=== PATIENT | female | born 1995 | race Caucasian/White ===

== ENCOUNTER → 2020-02-25 11:16 | Outpatient (CLI) | payer MEDICAID, SELFPAY ==
[2020-03-01 16:40] LABS: HPV Reflexed? NOT INDICATED
== END ==
PROVIDERS: Visit Provider Student in an Organized Health Care Education/Training Program
DX: Z12.4 Encounter for screening for malignant neoplasm of cervix (principal)
CPT/HCPCS: 88175; G0145

== ENCOUNTER → 2021-04-11 12:25 | Outpatient (CLI) | payer MEDICAID, SELFPAY ==
[2021-04-12 22:07] LABS: Chlamydia By Nucleic Acid AMP Negative (Negative)
[2021-04-13 16:57] LABS: Gonococcus By Nucleic Acid AMP Negative (Negative)
[2021-04-13 16:58] LABS: Gonococcus By Nucleic Acid AMP Negative (Negative)
== END ==
PROVIDERS: Visit Provider Student in an Organized Health Care Education/Training Program
DX: Z11.3 Encounter for screening for infections with a predominantly sexual mode of transmission (principal); Z32.01 Encounter for pregnancy test, result positive
CPT/HCPCS: 87491; 87591

== ENCOUNTER → 2021-04-17 11:43 | Outpatient (CLI) | payer MEDICAID, SELFPAY ==
[2021-04-17 12:09] LABS: Absolute Neutrophil Count 7.2 X10^3/uL (2.0-7.7); Basophil# 0.04 X10^3/uL; Basophil% 0.4 % (0-1); Eosinophil# 0.07 X10^3/uL; Eosinophils% 0.7 % (0-5); Hematocrit 46.7 % (37-47); Hemoglobin 15.6 g/dL (12.0-15.0); Lymphocyte % 19.6 % (19-41); Mean Corp Hgb Conc 33.4 g/dL (32-36); Mean Corpuscular Hgb 30.1 pg (27.0-32.0); Monocyte# 0.41 X10^3/uL; Monocyte% 4.2 % (0-10); NRBC Flagged by Analyzer 0 % (0-5); Neutrophil # 7.21 X10^3/uL (2.7-7.7); Neutrophil % 74.7 % (47-70); POSITIVE COUNT YES; RBC Distribution Width CV 13.1 % (11.6-14.6); RBC Distribution Width SD 42.3 fl (35.1-43.9); Red Blood Count 5.19 M/mm3 (4.2-5.4); White Blood Count 9.7 K/mm3 (4.4-11.0)
[2021-04-17 12:10] LABS: Differential Indicated SCAN CRITERIA MET
[2021-04-17 12:38] LABS: Platelet Estimate ADEQUATE (ADEQ)
[2021-04-17 14:13] LABS: HIV - WCH Non-Reactive (Nonreactive); Hepatitis B Surface Antigen Non-Reactive (Nonreactive); Hepatitis C Antibody Non-Reactive (Nonreactive); Syphilis Antibodies Non-reactive
== END ==
PROVIDERS: Visit Provider Student in an Organized Health Care Education/Training Program
DX: Z34.81 Encounter for supervision of other normal pregnancy, first trimester (principal)
CPT/HCPCS: 36415; 85025; 86703; 86762; 86780; 86803; 87086; 87088; 87340

== ENCOUNTER → 2021-05-15 13:08 | Outpatient (CLI) | payer MEDICAID, SELFPAY ==
[2021-05-15 13:33] LABS: Hematocrit 43.8 % (37-47); Hemoglobin 14.7 g/dL (12.0-15.0); Mean Corp Hgb Conc 33.6 g/dL (32-36); Mean Corpuscular Hgb 30.4 pg (27.0-32.0); Mean Corpuscular Volume 90.7 fL (81-99); Mean Platelet Vol. 11.7 fl (6.2-12.0); Platelet Count 164 K/mm3 (150-450); RBC Distribution Width CV 12.9 % (11.6-14.6); RBC Distribution Width SD 42.5 fl (35.1-43.9); Red Blood Count 4.83 M/mm3 (4.2-5.4); White Blood Count 8.9 K/mm3 (4.4-11.0)
[2021-05-15 14:02] LABS: Glucose Challenge Gest 1H 50g 118 mg/dL (70-140)
== END ==
PROVIDERS: Visit Provider Student in an Organized Health Care Education/Training Program
DX: Z34.82 Encounter for supervision of other normal pregnancy, second trimester (principal)
CPT/HCPCS: 36415; 82950; 85027

== ENCOUNTER 2021-09-04 11:07 | Outpatient (CLI) | payer MEDICAID, SELFPAY ==
[2021-09-04 11:23] LABS: Hematocrit 39.3 % (37-47); Hemoglobin 13.5 g/dL (12.0-15.0); Mean Corp Hgb Conc 34.4 g/dL (32-36); Mean Corpuscular Hgb 32.6 pg (27.0-32.0); Mean Corpuscular Volume 94.9 fL (81-99); Platelet Count 274 K/mm3 (150-450); RBC Distribution Width CV 13.7 % (11.6-14.6); RBC Distribution Width SD 47.3 fl (35.1-43.9); Red Blood Count 4.14 M/mm3 (4.2-5.4); White Blood Count 11.4 K/mm3 (4.4-11.0)
[2021-09-04 11:59] LABS: Glucose Challenge Gest 1H 50g 68 mg/dL (70-140)
== END 2021-09-04 23:59 | disposition home or self-care (01) ==
LOC: WOBLAB 11:08
PROVIDERS: Visit Provider Obstetrics & Gynecology
DX: Z34.83 Encounter for supervision of other normal pregnancy, third trimester (principal)
CPT/HCPCS: 36415; 82950; 85027

== ENCOUNTER → 2021-11-14 | Outpatient (CLI) | payer MEDICAID, SELFPAY | END | disposition home or self-care (01) | LOC: LABSPEC 13:16 | PROVIDERS: Visit Provider Student in an Organized Health Care Education/Training Program | DX: Z36.85 Encounter for antenatal screening for Streptococcus B (principal) | CPT/HCPCS: 87081 ==

== ENCOUNTER 2021-11-28 22:43 | Inpatient (IN) | payer MEDICAID, SELFPAY ==
[2021-11-28] VITALS (10 sets, daily range): BP systolic 129–141; BP diastolic 71–83; PULSE 85–101; TEMP 36.8–37.2; O2SAT 82–100; BMI 47.7
--- NOTE | 2021-11-28 | PLAC_PTH ---
PATIENT: NICOLAS BERG LOC: [facility] U#:[id number] AGE/SX: 26/F ROOM: WP010 RE11/28/[address]: Dr. Danni Gates MD : 1995 BED: 1 DIS: 11/30/2021 SPEC #: [id number] RECD: 11/29/21 00:42 STATUS: CONY LANCE #: [id number] PATIENCE: 11/28/21 00:[address]: Danni Flynn DEPT: SURGICAL PATHOLOGY RECD BY: Juanita Smith Tissues: Placenta, NOS Procedures: Surgery Specimen Level V HEADER OPERATION: Vaginal delivery PRE-OP DIAGNOSIS: IUGR, 38 3/7wga, spontaneous labor TISSUE SUBMITTED: Placenta MICROSCOPIC DIAGNOSIS Placenta: Placental disc - third trimester placenta (449 gm). - Focal chronic villitis of unknown etiology. Membranes ? focal mild acute chorioamnionitis. Umbilical cord - three blood vessels and no pathologic diagnosis. SJ:diamond 11/30/2021 MICROSCOPIC DESCRIPTION Slides are reviewed. GROSS DESCRIPTION SPECIMEN: PLACENTA / CLINICAL INFORMATION: A. Weight: 2.37 kg B. Gestational Age: 38 weeks C. Sex: Female PLACENTAL WEIGHT (POST FIXATION): 449 gm PLACENTAL DIMENSIONS: 17 x 15 x 3.5 cm PLACENTAL SHAPE: Usual ovoid PLACENTAL WEIGHT FOR GESTATIONAL AGE: Within 10-99th percentile MEMBRANES - Present A. Insertion: Marginal B. Site of rupture from edge: 2 cm from edge of placental disc C. Color of membrane: Kaiser-mucoidy D. Abnormalities: None UMBILICAL CORD - Present A. Color: Kaiser-valladares B. Insertion: Paracentral C. Length: 54 cm D. Diameter: 0.8 to 1 cm E. Number of vessels: Three F. Abnormalities: Increased spiraling is noted. PLACENTAL DISC - Present A. Color of surface: Kaiser-valladares B. surface abnormalities: None C. Maternal cotyledons: Intact with minimal tears D. Attached retro placental clot: No clot E. Cut surface: Dark red and spongy F. Lesions: None G. Separate clot: Absent SECTIONS SUBMITTED: 1. Membrane roll 2. Cord, maternal end 3. Cord, end 4. Placental disc, and maternal surfaces 5. Placental disc, and maternal surfaces 6. Placental disc, and maternal surfaces SJ:diamond 11/29/2021 TC:2 CPT: 38682
--- NOTE | 2021-11-28 18:01 | OB.TRI.NOTE ---
HPI - General General Date of Admission: 11/28/21 Date of Service: 11/28/21 Chief Complaint: decreased movement HPI Narrative NICOLAS BERG, is a 26 F who presents at 38 2/7 weeks gestation with decreased movement. Reports intermittent contractions. No leaking of fluid of vaginal bleeding. PFSH PFS Medical History (Updated 11/29/21 @ 00:[address] Danni Gates MD) Obesity Uterine anomaly Uterus didelphys Vaginal septum Home Medications [id number] 1 mg tablet tab PO 11/28/21 [History Last Taken 11/27/21 15:00] Allergy/AdvReac Type Severity Reaction Status Date / Time NSAIDS (Non-Steroidal AdvReac Swelling Verified 11/28/21 11:30 Anti-Inflamma sulfamethoxazole AdvReac Swelling Verified 11/28/21 11:30 [From Bactrim] trimethoprim [From Bactrim] AdvReac Swelling Verified 11/28/21 11:30 Family History (Updated 11/28/21 @ 23:[address] Danni Gates MD) Brother Leukemia Other Diabetes Surgical History (Updated 11/28/21 @ 23:[address] Danni Gates MD) History of tonsillectomy Surgical History no surgical history Social History (Updated 11/28/21 @ 23:[address] Danni Gates MD) Smoking Status: Never smoker alcohol intake: never History 1 Elective abortions Hx Para 0 Spontaneous abortions Hx # Term Pregnancies Ectopic pregnancies Hx # Pregnancies Multiple births # of living children NST FHR Rate Baby A Baseline: 130 Variability:: Moderate Accelerations:: 15 x 15 Decelerations:: None NST Reactive:: Yes FHR Category:: Category I Uterine Activity:: 0/10 Assessment & Plan (1) 38 weeks gestation of : (2) IUGR (intrauterine growth restriction) affecting care of mother: PLAN: NST reactive, Cat I Discussed with patient IUGR diagnosis. Given 38wga and maternal obesity and decreased FM offered induction of labor today. Pt reports movement improved during observation. Recent testing with BPP 8/8 11/27/21 and today's reactive NST overall reassuring and suggest overall low risk for stillbirth. Discussed continued outpatient monitoring as alternative. Following discussion of risks, benefits of IOL vs. expectant management pt opts for d/c home. Will plan for office follow up as scheduled.
--- NOTE | 2021-11-28 22:53 | PCM.HP.OB ---
HPI - General General Date of Admission: 11/28/21 Date of Service: 11/28/21 Chief Complaint: painful contractions HPI Narrative NICOLAS BERG, is a 26 F G1 at 38 2/7 weeks gestation (PRIYANK 12/10/21 by 6w ) with c/o painful contractions. She believes her water just broke since arrival to hospital. issues -Uterine didelphys with vaginal septum -Class III obesity -IUGR - 25th% overall with AC 2% - EFW 2596g on 11/23/21 PFSH PFSH Medical History (Updated 11/28/21 @ 23:[address] Danni Gates MD) Obesity Uterine anomaly Uterus didelphys Vaginal septum Home Medications [id number] 1 mg tablet tab PO 11/28/21 [History Last Taken 11/27/21 15:00] Allergy/AdvReac Type Severity Reaction Status Date / Time NSAIDS (Non-Steroidal AdvReac Swelling Verified 11/28/21 11:30 Anti-Inflamma sulfamethoxazole AdvReac Swelling Verified 11/28/21 11:30 [From Bactrim] trimethoprim [From Bactrim] AdvReac Swelling Verified 11/28/21 11:30 Family History (Updated 11/28/21 @ 23:[address] Danni Gates MD) Brother Leukemia Other Diabetes Surgical History (Updated 11/28/21 @ 23:[address] Danni Gates MD) History of tonsillectomy Surgical History no surgical history Social History (Updated 11/28/21 @ 23:[address] Danni Gates MD) Smoking Status: Never smoker alcohol intake: never History 1 Elective abortions Hx Para 0 Spontaneous abortions Hx # Term Pregnancies Ectopic pregnancies Hx # Pregnancies Multiple births # of living children NST FHR Rate Baby A Baseline: 120 Variability:: Minimal Accelerations:: None Decelerations:: Late FHR Category:: Category II Uterine Activity:: 3-4/10 min Vital Signs Vital Signs Vital Signs: 11/28/21 11:16 11/28/21 11:16 11/28/21 11:16 Temperature Temperature Source Temporal Pulse Rate 98 Blood Pressure 141/83 H BP Systolic 141 BP Diastolic 83 Pulse Ox 11/28/21 11:16 11/28/21 11:16 11/28/21 11:32 Temperature 98.3 F Temperature Source Pulse Rate Blood Pressure 132/77 H BP Systolic 132 BP Diastolic 77 Pulse Ox 98 11/28/21 11:32 11/28/21 22:02 11/28/21 22:02 Temperature Temperature Source Pulse Rate 89 85 Blood Pressure 129/71 H BP Systolic 129 BP Diastolic 71 Pulse Ox 11/28/21 22:02 11/28/21 22:11 11/28/21 22:11 Temperature Temperature Source Pulse Rate 101 H Blood Pressure BP Systolic BP Diastolic Pulse Ox 97 99 Weight Weight: 130 kg Body Mass Index (BMI) 47.7 Physical Exam Const alert, oriented x3 and no apparent distress HEENT normocephalic Resp normal respiratory effort, normal air movement and clear to auscultation bilaterally Cardio regular rate and regular rhythm GI normal to inspection, nondistended, normoactive bowel sounds, soft to palpation, non-tender and non-distended Inspection: gravid Narrative: 4.5/75/-3, soft and midposition Labs Labs Labs: Blood Type O POSITIVE Hct 39.3 % (37-47) Hgb 13.5 g/dL (12.0-15.0) Syphilis Total Ab Non-reactive Hep Bs Antigen Non-Reactive (Nonreactive) Chlamydia DNA (STEVIE) Negative (Negative) Neisseria gonorrhoeae DNA (STEVIE) Negative (Negative) HIV 1&2 Antibody Non-Reactive (Nonreactive) Glucose 1 Hr 50 gm 68 mg/dL (70-140) L Assessment & Plan (1) 38 weeks gestation of : PLAN: Admit in labor GBS neg (2) IUGR (intrauterine growth restriction) affecting care of mother: PLAN: FHT improved to Cat I with fluid bolus Continuous monitoring
[2021-11-28] MEDS: Lactated Ringers 1,000 ML 200 ML IV (23:28)
[2021-11-28 23:36] LABS: Absolute Lymphocyte Count 2.29 X10^3/uL (0.83-4.51); Absolute Neutrophil Count 13.1 X10^3/uL (2.0-7.7); Basophil# 0.04 X10^3/uL; Basophil% 0.2 % (0-1); Eosinophil# 0.07 X10^3/uL; Eosinophils% 0.4 % (0-5); Hematocrit 42.2 % (37-47); Hemoglobin 14.4 g/dL (12.0-15.0); Lymphocyte # 2.29 X10^3/ul (0.83-4.51); Lymphocyte % 13.8 % (19-41); Mean Corp Hgb Conc 34.1 g/dL (32-36); Mean Corpuscular Hgb 32.8 pg (27.0-32.0); Mean Corpuscular Volume 96.1 fL (81-99); Monocyte# 0.84 X10^3/uL; NRBC Flagged by Analyzer 0 % (0-5); Neutrophil # 13.14 X10^3/uL (2.7-7.7); Platelet Count 239 K/mm3 (150-450); RBC Distribution Width CV 13.7 % (11.6-14.6); RBC Distribution Width SD 47.8 fl (35.1-43.9); Red Blood Count 4.39 M/mm3 (4.2-5.4); White Blood Count 16.7 K/mm3 (4.4-11.0)
[2021-11-28 23:49] LABS: ROM Internal Control Test YES-OK TO RESULT pt. (Internal QC)
[2021-11-28 23:51] LABS: ROM Patient Test POSITIVE (Negative)
[2021-11-28] MEDS: Oxytocin 30 units/NS 500 ml 30 UNITS/500 ML IV.SOLN 334 UNITS IV (23:57)
[2021-11-29] VITALS (15 sets, daily range): BP systolic 107–164; BP diastolic 54–81; PULSE 72–94; RESP 16–18; TEMP 35.8–37.1; O2SAT 98
--- NOTE | 2021-11-29 00:16 | EX.PCM.OBRPT ---
Assessment & Plan (1) 38 weeks gestation of : (2) IUGR (intrauterine growth restriction) affecting care of mother: (3) (spontaneous vaginal delivery): Vaginal Delivery Maternal Presentation Maternal Presentation: Active Labor Operative Information Date of Procedure: 11/29/21 Pre-Operative Diagnosis: 1. 38-3/7 weeks gestation 2. IUGR 3. Uterine didelphys - in right horn Post-Operative Diagnosis: 1. 38-3/7 weeks gestation 2. IUGR 3. Uterine didelphys- in right horn Surgery / Procedure Performed: Spontaneous Vaginal Delivery Type of Anesthesia: None Estimated Blood Loss: 150 ml Time of Delivery: 23:47 Findings Description of Procedure: Patient was fully dilated and +2 station. She pushed to deliver a vigorous female in OA through a nuchal cord. The cord was reduced and placed on the maternal abdomen and further attended by nursery personnel. The cord was doubly clamped and cut at 5 minutes of life. Cord gases and cord blood specimen were obtained. The placenta delivered spontaneously and appeared intact on inspection. A first-degree perineal laceration with vaginal extension was repaired with 3-0 Vicryl Rapide. There was excellent hemostasis and the fundus was firm. Sponge counts correct x2. Presentation: Vertex Amniotic Membrane Rupture Type: Spontaneous Amniotic Fluid Description: Clear Placental Delivery Description: Spontaneous Placenta Disposition: [facility] Specimen(s) Removed: Placenta Cord Vessel Description: 3 Vessels Cord Entanglement: Around neck x 1, loose Nuchal Cord Compression: Without compression Cord Gases: ABG and VBG Infant A Gender: Female (1 minute): 8 (5 minute): 9 Delayed Cord Clamping: Yes Post Vaginal Delivery Medications Given After Delivery: IV Pitocin Episiotomy Description: None Laceration: Midline, Perineal Extension/lac, Vaginal Extension/lac and 1st degree Complication Complications: None
[2021-11-29 00:44] LABS: Pathology Specimen OB SEE PATHOLOGY REPORT
[2021-11-29] MEDS: Acetaminophen 500 MG Tablet 1000 MG PO ×3 (01:19→16:46)
[2021-11-29] MEDS: Hydrocortisone 2.5% Crm 1 APPLIC TOPICAL (02:05)
[2021-11-29] MEDS: 0.9% Saline Lock 10 ML Syringe IV (02:30)
--- NOTE | 2021-11-29 04:30 | NURSING ---
report given to Alden VASQUEZ, she assumes pt care at this time
--- NOTE | 2021-11-29 08:41 | PCM.PN.OB ---
Subjective Subjective She is sore this morning, but feels pain is manageable. Denies heavy lochia, headaches and vision changes. Objective Data Objective Data Vital Signs: Vital Signs Temp Pulse Resp BP Pulse Ox 97.8 F 88 18 110/58 L 98 11/29/21 07:49 11/29/21 07:49 11/29/21 07:49 11/29/21 07:49 11/29/21 03:12 Oxygen Delivery Method Room Air Weight: 130 kg Body Mass Index (BMI) 47.7 Intake & Output: Intake and Output for Last 24 Hours 11/27/21 11/28/21 11/29/21 23:59 23:59 23:59 Intake Total 63.33 / 63.33 500 / 500 Output Total 500 / 500 Balance 63.33 / 63.33 0 / 0 Lab / Micro Data Result Diagrams: 11/28/21 22:35 Labs: Laboratory Results - last 24 hr 11/28/21 22:35: WBC 16.7 H, RBC 4.39, Hgb 14.4, Hct 42.2, MCV 96.1, MCH 32.8 H, MCHC 34.1, RDW Std Deviation 47.8 H, RDW Coeff of Leola 13.7, Plt Count 239, MPV 12.0, Immature Gran % (Auto) 1.600 H, Neut % (Auto) 79.0 H, Lymph % (Auto) 13.8 L, [place] % (Auto) 5.0, Eos % (Auto) 0.4, Baso % (Auto) 0.2, Absolute Neuts (auto) 13.1 H, Absolute Lymphs (auto) 2.29, Nucleated RBC % 0 11/28/21 22:35: Blood Type O POSITIVE, Antibody Screen NEGATIVE 11/28/21 22:46: Vag Amniotic Fld Detect POSITIVE H Micro: Microbiology 11/28/21 22:46 Nasal Secretion SARS-CoV-2 Antigen (Rapid) - Final Physical Exam Const alert, oriented x3 and no apparent distress Resp normal respiratory effort and normal air movement Cardio regular rate, regular rhythm, S1 normal heart sound and S2 normal heart sound Uterus Palpation: uterus fundus firm and other OB fundus nontender Extremity no calf tenderness Neuro oriented x3 Assessment & Plan (1) (spontaneous vaginal delivery): PLAN: Plan Rh positive Routine care
[2021-11-30 00:15] VITALS: BP 110/64; PULSE 91; RESP 16; TEMP 37.1; O2SAT 98
[2021-11-30] MEDS: Acetaminophen 500 MG Tablet 1000 MG PO ×2 (02:01→08:37)
[2021-11-30 04:45] VITALS: BP 101/53; PULSE 94; RESP 16; TEMP 36; O2SAT 96
[2021-11-30 08:02] VITALS: BP 102/61; PULSE 84; RESP 17; TEMP 36.6; O2SAT 97
--- NOTE | 2021-11-30 08:52 | DCINST_ITS ---
Discharge Instructions Diet Discharge Diet: No restrictions Activity Discharge Activity: May Drive (In 1 to 2 days if not taking narcotic pain medication), May Shower and May Take a Tub Bath May resume sexual activity in: 4-6 weeks Additional Activity Instructions:: Nothing in the vagina for 4-6 weeks. You may return to work/school in 6 weeks. Dressing / Incision Call your doctor if you observe: Fever of 101 or Higher, Inability to urinate, Inability to have a bowel movement and Using more than 1 pad per hour Follow Up Care Please Follow Up With: Susanna Alva DO When: Call [phone] to make an appointment with your doctor in 6 weeks. Test Results: Test results from this visit will be discussed in further detail at your follow- up appointment, if applicable. Discharge Plan Admission Admit Date/Time: 11/28/21 22:43 Primary Reason for Your Visit: Spontaneous Vaginal Delivery Attending Provider: Dnani Flynn Discharge Orders/Prescriptions Prescriptions: No Action + Iron 1 mg Tablet PO Referrals / Follow Up: Danni Flynn MD [STAFF PHYSICIAN] - (Keep office appointment. Use kick count sheet.) Disposition Disposition (needs filled in before D/C Order can be placed): Home, Self Care
--- NOTE | 2021-11-30 08:52 | PCM.PN.OB ---
Subjective Subjective Patient without complaints. Breast-feeding going well and minimal vaginal bleeding reported. Wants to go home today. Objective Data Objective Data Vital Signs: Vital Signs Temp Pulse Resp BP Pulse Ox O2 Del Method 97.8 F 84 17 102/61 97 Room Air 11/30/21 08:02 11/30/21 08:02 11/30/21 08:02 11/30/21 08:02 11/30/21 08:02 11/30/21 08:02 Oxygen Delivery Method Room Air Weight: 286 lb 9.615 oz Body Mass Index (BMI) 47.7 Intake & Output: Intake and Output for Last 24 Hours 11/28/21 11/29/21 11/30/21 23:59 23:59 23:59 Intake Total 63.33 / 63.33 500 / 500 Output Total 500 / 500 Balance 63.33 / 63.33 0 / 0 Lab / Micro Data Result Diagrams: 11/28/21 22:35 Micro: Microbiology 11/28/21 22:46 Nasal Secretion SARS-CoV-2 Antigen (Rapid) - Final Assessment & Plan (1) (spontaneous vaginal delivery): PLAN: Plan Doing well day #2 status post routine spontaneous vaginal delivery. Will discharge to home with routine instructions.
[2021-11-30 14:00] VITALS: BP 121/62; PULSE 104; RESP 16; TEMP 36.6; O2SAT 97
== END 2021-11-30 14:25 | disposition home or self-care (01) | DRG 560 ==
LOC: WPOUT 22:48 → WP 22:48
PROVIDERS: Admitting Provider Obstetrics & Gynecology; Visit Provider Obstetrics & Gynecology
DX: O36.5930 Maternal care for other known or suspected poor fetal growth, third trimester, not applicable or unspecified (principal); Z37.0 Single live birth; O36.8130 Decreased fetal movements, third trimester, not applicable or unspecified; O69.81X0 Labor and delivery complicated by cord around neck, without compression, not applicable or unspecified; O70.0 First degree perineal laceration during delivery; Z3A.38 38 weeks gestation of pregnancy; Z79.1 Long term (current) use of non-steroidal anti-inflammatories (NSAID); Q51.28 Other and unspecified doubling of uterus; O99.893 Other specified diseases and conditions complicating puerperium
CPT/HCPCS: 59025; 59050; 84112; 85025; 86850; 86900; 86901; 87426; 88307; 99218; J7120; A4216; G0378

== ENCOUNTER → 2022-05-16 | Outpatient (CLI) | payer MEDICAID, SELFPAY ==
[2022-05-26 20:49] LABS: HPV Reflexed? NOT INDICATED
[2022-05-26 20:49] LABS: HPV Reflexed? NOT INDICATED
== END | disposition home or self-care (01) ==
PROVIDERS: Visit Provider Student in an Organized Health Care Education/Training Program
DX: Z01.419 Encounter for gynecological examination (general) (routine) without abnormal findings (principal); N76.0 Acute vaginitis; Q51.10 Doubling of uterus with doubling of cervix and vagina without obstruction
CPT/HCPCS: 88175; G0145

== ENCOUNTER → 2023-01-21 | Outpatient (CLI) | payer MEDICAID, SELFPAY ==
[2023-01-21 13:19] LABS: Absolute Lymphocyte Count 1.82 X10^3/uL (0.83-4.51); Absolute Neutrophil Count 7.3 X10^3/uL (2.0-7.7); Basophil# 0.04 X10^3/uL; Basophil% 0.4 % (0-1); Eosinophil# 0.03 X10^3/uL; Eosinophils% 0.3 % (0-5); Hematocrit 42.9 % (37-47); Hemoglobin 14.2 g/dL (12.0-15.0); Lymphocyte # 1.82 X10^3/ul (0.83-4.51); Lymphocyte % 18.9 % (19-41); Mean Corp Hgb Conc 33.1 g/dL (32-36); Mean Corpuscular Hgb 30.6 pg (27.0-32.0); Mean Corpuscular Volume 92.5 fL (81-99); Mean Platelet Vol. 11.4 fl (6.2-12.0); Monocyte# 0.39 X10^3/uL; Monocyte% 4.1 % (0-10); NRBC Flagged by Analyzer 0 % (0-5); Neutrophil # 7.29 X10^3/uL (2.7-7.7); Neutrophil % 75.9 % (47-70); Platelet Count 316 K/mm3 (150-450); RBC Distribution Width CV 12.8 % (11.6-14.6); Red Blood Count 4.64 M/mm3 (4.2-5.4); White Blood Count 9.6 K/mm3 (4.4-11.0)
[2023-01-21 21:38] LABS: HIV - WCH Non-Reactive (Nonreactive); Hepatitis B Surface Antigen Non-Reactive (Nonreactive); Hepatitis C Antibody Non-Reactive (Nonreactive); Rubella IgG Reactive (Nonreactive); Syphilis Antibodies Non-reactive
[2023-01-23 05:07] LABS: V-Zoster IgG (Immunity) 1082 index (Immune >165)
[2023-01-25 18:15] LABS: HPV Reflexed? NOT INDICATED
== END | disposition home or self-care (01) ==
PROVIDERS: Visit Provider Student in an Organized Health Care Education/Training Program
DX: Z34.81 Encounter for supervision of other normal pregnancy, first trimester (principal); N91.1 Secondary amenorrhea
CPT/HCPCS: 36415; 85025; 86703; 86762; 86780; 86787; 86803; 87086; 87340; 88175; G0145

== ENCOUNTER 2023-08-06 12:54 | Inpatient (IN) | payer MEDICAID, SELFPAY ==
[2023-08-06] VITALS (22 sets, daily range): BP systolic 104–129; BP diastolic 52–78; PULSE 71–106; RESP 16–18; TEMP 36.4–37.1; O2SAT 93–99; BMI 43.7
--- NOTE | 2023-08-06 13:10 | PCM.HP.OB ---
HPI - General General Date of Admission: 08/06/23 HPI Narrative NICOLAS BERG, is a 28 F @ 37.5 week who presents from the office for IOL due to BPP 09/08. pt getting weekly BPP due to obesity with BMI 44. pt reports no movement today- discussion with patient due to term gestation and risk factors plan for IOL today. Pt agreeable. PFSH PFS Medical History (Updated 08/06/23 @ 13:[address] Giuliana Jimenez MD) 38 weeks gestation of IUGR (intrauterine growth restriction) affecting care of mother Obesity (spontaneous vaginal delivery) Uterine anomaly Uterus didelphys Vaginal septum Home Medications [id number]-[id number]-FA 1 mg tablet tab PO 11/28/21 [History Last Taken 11/27/21 15:00] Allergy/AdvReac Type Severity Reaction Status Date / Time NSAIDS (Non-Steroidal AdvReac Swelling Verified 11/28/21 11:30 Anti-Inflamma sulfamethoxazole AdvReac Swelling Verified 11/28/21 11:30 [From Bactrim] trimethoprim [From Bactrim] AdvReac Swelling Verified 11/28/21 11:30 Family History (Updated 11/28/21 @ 23:[address] Danni Gates MD) Brother Leukemia Other Diabetes Surgical History (Updated 11/28/21 @ 23:[address] Danni Gates MD) History of tonsillectomy Social History (Updated 11/28/21 @ 23:[address] Danni Gates MD) Smoking Status: Never smoker alcohol intake: never History 1 Elective abortions Hx Para 0 Spontaneous abortions Hx # Term Pregnancies Ectopic pregnancies Hx # Pregnancies Multiple births # of living children Vital Signs Vital Signs Vital Signs: Weight Weight: 123 kg Body Mass Index (BMI) 43.7 Physical Exam Narrative VE: 1.5/70/-2 Const alert and oriented x3 General Appearance: cooperative HEENT normocephalic GI GI Narrative: Gravid, non tender to palpation. OB / External & Speculum: external exam normal Extremity normal to inspection Skin no rashes or lesions noted Neuro oriented x3 and CN's II-XII intact bilaterally Psych Appearance: grossly normal Labs Labs Labs: Blood Type O POSITIVE Antibody Screen NEGATIVE Hct 42.9 % (37-47) Hgb 14.2 g/dL (12.0-15.0) Syphilis Total Ab Non-reactive VZV IgG Antibody 1082 index (Immune >165) Rubella IgG Antibody Reactive (Nonreactive) Hep Bs Antigen Non-Reactive (Nonreactive) Hepatitis C Antibody Non-Reactive (Nonreactive) Chlamydia DNA (STEVIE) Negative (Negative) N.gonorrhoeae DNA (STEVIE) Negative (Negative) HIV 1&2 Antibody Non-Reactive (Nonreactive) Glucose 1 Hr 50 gm 68 mg/dL (70-140) L Rhogam given: No Miscellaneous Test Assessment & Plan (1) Obesity affecting : (2) with care elsewhere: (3) IUGR (intrauterine growth restriction) in prior , : (4) at 37 weeks gestation or greater with abnormal testing: (5) Didelphic uterus in : PLAN: Plan Admit to L&D [place] FHR/TOCO Epidural if requested for pain Monitor VS Anticipate pitocin/bryan
[2023-08-06] MEDS: Lactated Ringers 1,000 ML 50 ML IV (14:10)
[2023-08-06] MEDS: 0.9% Normal Saline Single 100 ML IV.SOLN. INTRA-UTER (14:12)
--- NOTE | 2023-08-06 14:14 | PCM.PN.BLA ---
Progress Note pt seen at bedside Transcervical bryan placed- pt tolerated well. will start pitocin.
[2023-08-06] MEDS: Oxytocin 15 Units/NS 250ml 15 UNITS/250 ML IV.SOLN 2 UNITS IV (14:15)
[2023-08-06 14:31] LABS: Absolute Lymphocyte Count 2.48 X10^3/uL (0.83-4.51); Basophil# 0.06 X10^3/uL; Basophil% 0.5 % (0-1); Eosinophil# 0.05 X10^3/uL; Eosinophils% 0.4 % (0-5); Hematocrit 37.9 % (37-47); Hemoglobin 12.7 g/dL (12.0-15.0); Lymphocyte # 2.48 X10^3/ul (0.83-4.51); Lymphocyte % 20.3 % (19-41); Mean Corp Hgb Conc 33.5 g/dL (32-36); Mean Corpuscular Hgb 31.1 pg (27.0-32.0); Mean Corpuscular Volume 92.7 fL (81-99); Mean Platelet Vol. 11.6 fl (6.2-12.0); Monocyte# 0.57 X10^3/uL; Monocyte% 4.7 % (0-10); NRBC Flagged by Analyzer 0 % (0-5); Neutrophil # 8.98 X10^3/uL (2.7-7.7); Neutrophil % 73.6 % (47-70); Platelet Count 265 K/mm3 (150-450); RBC Distribution Width CV 13.1 % (11.6-14.6); RBC Distribution Width SD 43.3 fl (35.1-43.9); Red Blood Count 4.09 M/mm3 (4.2-5.4); White Blood Count 12.2 K/mm3 (4.4-11.0)
[2023-08-06 15:04] LABS: Syphilis Antibodies Non-reactive
[2023-08-06] MEDS: CHLORHEXIDINE GLUC 2% CLOTH 1 EACH TOWELETTE TOPICAL (15:29)
--- NOTE | 2023-08-06 19:14 | PCM.PN.BLA ---
Progress Note pt seen at bedside, ve: /-2 AROM performed clear fluid.
[2023-08-06] MEDS: Lidocaine 1% (20 ml mdv) 20 ML Vial INFILT (20:36)
--- NOTE | 2023-08-06 20:51 | EX.PCM.OBRPT ---
Vaginal Delivery Maternal Presentation Maternal Presentation: Medically Indicated Induction Maternal Presentation: Biophysical profile 09/08 , maternal obesity in , h/o iugr Type of Induction: Pitocin and Mead Bulb Operative Information Date of Procedure: 08/06/23 Pre-Operative Diagnosis: 37 weeks, Obesity in , testing- non reassuring (BPP 09/08), h/o IUGR currently Post-Operative Diagnosis: same, live female Surgery / Procedure Performed: Spontaneous Vaginal Delivery Type of Anesthesia: None Estimated Blood Loss: 50 Time of Delivery: 20:10 Findings Description of Procedure: Patient progressed to fully dilated. Good maternal pushing efforts delivered the infant's head followed by the anterior shoulder and the rest the infant's body without complication. The infant was placed on the mother's chest for immediate skin to skin. was vigorous at time of delivery. Delayed cord clamping was performed. Cord was then clamped. IV Pitocin was started. Placenta was then delivered intact without complication. Small first-degree perineal laceration was appreciated small oozing. 1% lidocaine was injected total of 10 cc. 3-0 Rapide suture was used to repair the laceration for hemostasis. Patient tolerated well. Presentation: Vertex Amniotic Membrane Rupture Type: Artificial Amniotic Fluid Description: Clear Placental Delivery Description: Spontaneous Placenta Disposition: [facility] Specimen(s) Removed: placenta Cord Vessel Description: 3 Vessels Cord Entanglement: None Infant A Gender: Female (1 minute): 7 (5 minute): 8 Delayed Cord Clamping: Yes Post Vaginal Delivery Medications Given After Delivery: IV Pitocin Episiotomy Description: None Laceration: Perineal Extension/lac and 1st degree Complication Complications: None
[2023-08-06] MEDS: Oxytocin 15 Units/NS 250ml 15 UNITS/250 ML IV.SOLN 83 UNITS IV (21:03)
[2023-08-06] MEDS: Benzocaine/Lanolin/Aloe Vera 1 SPRAY EACH TOPICAL (21:26)
[2023-08-06] MEDS: Acetaminophen 500 MG Tablet 1000 MG PO (21:26)
[2023-08-07] VITALS (10 sets, daily range): BP systolic 101–125; BP diastolic 55–71; PULSE 73–111; RESP 16–18; TEMP 36.3–37; O2SAT 92–98
--- NOTE | 2023-08-07 08:14 | PCM.PN.CNM ---
Subjective Subjective Patient seen at bedside. Feeling good. Denies any pain. Ambulating and voiding without difficulty. with minimal support. Anticipates discharge home tomorrow. Objective Data Objective Data Vital Signs: Vital Signs Temp Pulse Resp BP Pulse Ox O2 Del Method 98.6 F 85 16 101/55 L 98 Room Air 08/07/23 07:53 08/07/23 07:53 08/07/23 07:53 08/07/23 07:53 08/07/23 03:55 08/07/23 07:53 Oxygen Delivery Method Room Air Weight: 271 lb 2.697 oz Body Mass Index (BMI) 43.7 Intake & Output: Intake and Output for Last 24 Hours 08/05/23 08/06/23 08/07/23 23:59 23:59 23:59 Intake Total 550.00 / 550.00 250 / 250 Output Total 650 / 650 400 / 400 Balance -100 / -100.00 -150 / -150 Lab / Micro Data 08/06/23 14:10 Labs: Laboratory Results - last 24 hr 08/06/23 14:10: WBC 12.2 H, RBC 4.09 L, Hgb 12.7, Hct 37.9, MCV 92.7, MCH 31.1, MCHC 33.5, RDW Std Deviation 43.3, RDW Coeff of [place] 13.1, Plt Count 265, MPV 11.6, Immature Gran % (Auto) 0.500, Neut % (Auto) 73.6 H, Lymph % (Auto) 20.3, [place] % (Auto) 4.7, Eos % (Auto) 0.4, Baso % (Auto) 0.5, Absolute Neuts (auto) 9.0 H, Absolute Lymphs (auto) 2.48, Nucleated RBC % 0, Syphilis Total Ab Non-reactive, Blood Type O POSITIVE, Antibody Screen NEGATIVE ROS Eyes Eyes: Denies blurry vision, change in vision or spots in vision ENT HEENT: Denies dizziness or headache(s) Cardiovascular Cardiovascular: Denies abdominal pain, chest pain or dyspnea Respiratory/Chest Respiratory/Chest: Denies cough, dyspnea, shortness of breath at rest or shortness of breath with exertion Gastrointestinal Gastrointestinal: Denies abdominal pain, diarrhea or vomiting Genitourinary Genitourinary: Denies change in urinary stream, difficulty urinating or dysuria Musculoskeletal Musculoskeletal: Reports none Integumentary Integumentary: Denies rash Neurologic Neurologic: Denies dizziness, headache(s), memory loss or weakness Physical Exam Const alert and no apparent distress General Appearance: cooperative and comfortable Exam Limitations: no limitations HEENT normocephalic Eyes General Eye: normal appearance of both eyes Neck full ROM General: normal visual inspection Chest Chest: symmetrical chest wall rise Resp normal respiratory effort and normal air movement Effort and Inspection: symmetric chest movement Auscultation: clear to auscultation bilaterally Cardio regular rate and regular rhythm GI normal to inspection, nondistended, normoactive bowel sounds Back/Spine normal ROM Extremity full ROM and no calf tenderness General Extremity: normal exam except as noted Skin no rashes or lesions noted Neuro CN's II-XII intact bilaterally Psych mental status grossly normal Assessment & Plan (1) Didelphic uterus in : (2) Care and examination of lactating mother: PLAN: PPD 1 Routine care support
[2023-08-07] MEDS: Acetaminophen 500 MG Tablet 1000 MG PO (09:29)
[2023-08-07] MEDS: Famotidine 20 MG Tablet PO (09:29)
[2023-08-08 02:56] VITALS: BP 104/55; PULSE 70; RESP 16; TEMP 36.2; O2SAT 97
[2023-08-08 02:58] VITALS: BP 104/55; PULSE 73
--- NOTE | 2023-08-08 06:57 | PCM.DC.SUM ---
Providers Date of Admission: 08/06/23 Reason For Visit: VAG Diagnosis Discharge Diagnosis (1) Didelphic uterus in : Status: Acute Code(s): O34.599 - Maternal care for other abnormalities of gravid uterus, unspecified trimester; Q51.28 - Other and unspecified doubling of uterus (2) Care and examination of lactating mother: Status: Acute Code(s): Z39.1 - Encounter for care and examination of lactating mother Plan PPD 2 Routine care support Discharge home Medications at Discharge Home Medications xzyvswpp-khi-Oc-FA 1 mg tablet tab PO 11/28/21 famotidine 20 mg tablet (Acid Controller) 20 mg PO DAILY heartburn 08/06/23 acetaminophen 500 mg tablet 1,000 mg (2 x 500 mg) PO Q6H PRN PRN Pain 1-10 Or Fever #0 tabs 08/08/23 ibuprofen 600 mg tablet 600 mg PO Q6H PRN PRN Pain Score 1-3 #0 tabs 08/08/23 Hospital Course Operations None Procedures None Summary of Care Provided Minutes Spent on Discharge: 10 Hospital Course: Patient had . Hospital course was uneventful. Physical Exam Const alert and no apparent distress General Appearance: cooperative and comfortable Exam Limitations: no limitations HEENT normocephalic Eyes General Eye: normal appearance of both eyes Neck full ROM General: normal visual inspection Chest Chest: symmetrical chest wall rise Resp normal respiratory effort and normal air movement Effort and Inspection: symmetric chest movement Auscultation: clear to auscultation bilaterally Cardio regular rate and regular rhythm GI normal to inspection, nondistended, normoactive bowel sounds Back/Spine normal ROM Extremity full ROM and no calf tenderness General Extremity: normal exam except as noted Skin no rashes or lesions noted Neuro CN's II-XII intact bilaterally Psych mental status grossly normal Weight / BMI Weight Weight: 271 lb 2.697 oz Body Mass Index (BMI) 43.7 ABG / Lab / Microbiology Data 08/06/23 14:10 D/C Instructions Discharge Diet: No restrictions May resume sexual activity in: 6-8 weeks Weight Bearing Status: Weight bearing as tolerated Call your doctor if you observe: Fever of 101 or Higher, Inability to urinate, Using more than 1 pad per hour, Shortness of breath, Chest pain, Calf discomfort and Uncontrolled pain Please Follow Up With: Maria Del Carmen Maxwell CNM When: 2 weeks virtual visit/ 6 weeks in office Meaningful Use Info Meaningful Use Diagnoses (Choose all that apply): None applicable Discharge Plan Admission Admit Date/Time: 08/06/23 12:54 Primary Reason for Your Visit: Labor and Delivery Attending Provider: Giuliana Jimenez Discharge Orders/Prescriptions Prescriptions: New acetaminophen 500 mg Tablet 1,000 mg PO Q6H PRN PRN (Reason: Pain 1-10 Or Fever) Qty: 0 0RF ibuprofen 600 mg Tablet 600 mg PO Q6H PRN PRN (Reason: Pain Score 1-3) Qty: 0 0RF Continued hebroyrq-wjy-Ma-FA 1 mg Tablet PO No Action famotidine [Acid Controller] 20 mg tablet 20 mg PO DAILY Disposition Disposition (needs filled in before D/C Order can be placed): Home, Self Care
[2023-08-08 08:37] VITALS: BP 107/58; PULSE 78; RESP 15; TEMP 36.2
--- NOTE | 2023-08-08 12:12 | CASEMGMT ---
Social Work Assessment Labor and Delivery Unit Patient Address:[address] [place] [address] Phone number: [phone] Date of Referral: 08/06/23 Time of Referral:? 6 Referred By: Giuliana Jimenez Date of Intervention: 08/08/23?? Time of Intervention:? 914 Reason for Referral:? anxiety with first baby/pt's mother was a previous addict Sw completed chart review and acknowledged social work consult due to maternal mental health history. Sw presented to bedside and introduced self to mother of baby (DAISHA- Kaur) and explained sw role. Father of baby (FOMilan- Douglas) was present, but asleep on the couch. Sw completed assessment and asked MOB to complete [place] Depression Scale. Sw provided education, support and literature for parents to review. History obtained from: medical records, MOB Household composition: Currently residing in the family home is THADDEUS ASHTON, their 1 year old daughter, Hector (: 11/28/21), their adopted 4 year old daughter, Juventino and now baby. MOB denies any issues or concerns with their housing at this time. Patient's parent/guardian status:? ?MOB states that she and THADDEUS have been together for 10 years, for 9. MOB states that they met through mutual friends. MOB denies any concerns with domestic violence or intimate partner violence. Medical History: DAISHA is 28 year old female who is 2, para 1-now 2 following labor and delivery of . DAISHA received routine care throughout with [facility]. DAISHA presented to hospital on 08/06/23 for an induction of labor and delivered baby at 37 weeks gestation via vaginal delivery. Baby girl, named Marilynn, was born weighing 5lb 15oz and her apgars were 7 and 8 at one and five minutes of life, respectfully. MOB states that she is breast feeding and this is going well. MOB states that baby will be followed by Dr. Albarado for pediatrics. Educational Status:?Both parents graduated from high school. MOB denies issues with reading, learning or comprehension. 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 Infant Supplies:?? Parents have obtained all necessary baby supplies, including: car seat, safe sleep space, clothes, diapers and wipes. DAISHA states that she has a breast pump for home. Childcare/Caregiver(s):? DAISHA will be the primary caregiver to baby along with THADDEUS when he is not at work. Transportation:?? THADDEUS drives and has reliable means of transportation. DAISHA states that she does not drive, but has FOB and other family members that help her to get to scheduled medical and doctors appointments. Programs/Agencies Involved: ?DAISHA is connected to insurance through [employer] ([employer]) and SNAP benefits. DAISHA states that she is wanting to get connected to [facility] but has not made an apt yet. Sw encouraged DAISHA to call and get an apt scheduled with [facility] as soon as she is able. ?? Children Services/Legal Issues:?No history of involvement, no issues or concerns warranting a referral to be made at this time. ?? Behavioral Health Issues: ??Mental Health History:?THADDEUS denies mental health diagnoses. DAISHA states that she has not been diagnosed with any mental health diagnoses, but does endorse experiencing anxiety after her first daughter was born. DAISHA states that at that time she was anxious about sleeping. DAISHA states that last night she started to feel anxious and panicky when baby was not sleeping and wanted to cluster feed. DAISHA completed [place] Depression scale and her score was a 9. Sw provided education and support. ?? Substance Use History:?DAISHA denies substance use prior to and during . ? Family History:?DAISHA states that her mom has a substance use history, but has been sober. DAISHA states that her mom has helped to care for her other daughters while she is at the hospital. ? Drug Screens: ??No drug screens observed in chart review. Family/Social Stressors:? DAISHA states that current concern is due to THADDEUS was just let go of his job. MOB states that they are connected to resources and have family that can help them. Support Systems: DAISHA states that THADDEUS and her mom are her biggest supports at this time. Depression/Shaken Baby/Safe Sleeping:? Sw educated DAISHA on signs and symptoms of baby blues and depression to be on the lookout for. DAISHA stated that due to her history she is familiar of what to be on the lookout for. Sw encouraged DAISHA to talk to her OBGYN or her PCP should she start to experience any concerning symptoms. MOB expressed understanding and agreement. Sw educated MOB on shaken baby prevention and ABCs of safe sleep. Parent expressed understanding. ASSESSMENT:? MOB and baby admitted following labor and delivery. MOB made eye contact and engaged appropriately during completion of psychosocial assessment. MOB answered questions, but did not elaborate answers. MOB with history of anxiety and understanding need to be mindful of signs and symptoms. MOB has obtained all necessary baby supplies and has natural supports in place. PLAN:? MOB and baby to be discharged when medically ready. ?No other services requested or indicated. Radha Terrell, SISTER SUPERIOR, RIDING COACH
--- NOTE | 2023-08-12 09:41 | NURSING ---
Follow up phone call performed. Pt. doing well. Denies s+s of complications (no heavy lochia, no blurred vision, no PACHECO). has been going well. Family denies questions or concerns.
== END 2023-08-08 10:45 | disposition home or self-care (01) | DRG 560 ==
PROVIDERS: Admitting Provider Obstetrics & Gynecology; Referring Provider Obstetrics & Gynecology; Visit Provider Obstetrics & Gynecology
DX: O70.0 First degree perineal laceration during delivery (principal); Z37.0 Single live birth; O99.893 Other specified diseases and conditions complicating puerperium; Z3A.37 37 weeks gestation of pregnancy; Q51.28 Other and unspecified doubling of uterus
CPT/HCPCS: 59025; 59050; 85025; 86780; 86850; 86900; 86901; 99221; G0378